=== PATIENT | female | born 1990 | race American Indian/Alaskan Native ===

== ENCOUNTER 2017-07-10 10:11 | Emergency (ER) | payer MEDICAID ==
--- NOTE | 2017-07-10 10:55 | Emergency Department Report ---
Minor Respiratory - HPI Chief Complaint: Upper Respiratory Infection Stated Complaint: FLU LIKE SYMPTOMS Time Seen by Provider: 07/10/17 10:54 Duration: 1 Day Pain Location: Other (bodyache 02/23) Severity: severe Minor Respiratory: Yes Rhinorrhea (congestion), Yes Able to Tolerate Fluids, Yes Cough, Yes Fever (she says she took Tylenol), No Sore Throat, No Ear Pain, No Sick Contacts (patient concern for infection due to organ transplant status) , No Hemoptysis, No Chest Pain, No Shortness of Breath Other History: Patient reports that she's been having congestion cough and body ache, fever and chills times one day. Denies being around anyone with similar symptoms. Patient has a history of asthma and kidney, pancreas transplant 2 years ago and also she is type I diabetic and also on hemodialysis. Denies any nausea or vomiting. Denies any shortness of breath or chest pain. Denies any abdominal or back pain. [id number] medication did not help. ED Review of Systems ROS: Stated complaint: FLU LIKE SYMPTOMS Other details as noted in HPI Comment: All other systems reviewed and negative Constitutional: chills, fever Eyes: denies: eye pain, eye discharge ENT: denies: ear pain, throat pain, congestion Respiratory: cough. denies: orthopnea, shortness of breath, SOB with exertion, SOB at rest, stridor, wheezing Cardiovascular: denies: chest pain, palpitations, dyspnea on exertion, edema, syncope, paroxysmal nocturnal dyspnea Gastrointestinal: denies: abdominal pain, nausea, vomiting, diarrhea, constipation, hematemesis, melena Musculoskeletal: myalgia. denies: back pain, joint swelling, arthralgia Skin: denies: rash Neurological: denies: headache, numbness, paresthesias, confusion, abnormal gait , vertigo ED Past Medical Hx - Past Medical History Previous Medical History?: Yes Hx Hypertension: Yes (3-4 YRS, ) Hx Diabetes: Yes (1996 IDDM SINCE 6YRS OLD) Hx GERD: Yes Hx Renal Disease: (HEMODIALYSIS - Wed) Hx Headaches / Migraines: Yes (MIGRAINES IN THE PAST) Hx Asthma: Yes (2011) Additional medical history: dialysis Tu//wed - Surgical History Past Surgical History?: Yes Hx Cholecystectomy: Yes Additional Surgical History: shunt left upper arm. KIDNEY AND PANCREAS transplant 06/2015. Port to right chest - Family History Family history: hypertension - Social History Smoking Status: Never Smoker Substance Use Type: None - Medications Home Medications: Home Medications Medication Instructions Recorded Confirmed Last Taken Type Sevelamer Carbonate [Renvela] 2 tab PO TIDWM 01/20/13 08/02/15 05/02/15 History 2 tab prednisoLONE ACETATE 1%(NF) [Pred 1 drops OD TID 03/29/13 08/02/15 05/03/15 History Forte 1%(Nf)] 1 drop NIFEdipine [Nifedipine ER] 30 mg PO BID 09/29/13 08/02/15 05/03/15 History 30mg oxyCODONE /ACETAMINOPHEN [Percocet 1 tab PO BID PRN #10 tablet 04/19/1505/02/15 Rx 5/325] 1 tab Fluticasone/Salmeterol [Advair 2 puff INHALATION BID 05/03/15 08/02/15 05/03/15 History Diskus 250-50 mcg] 2 puffs K-Phos Neutral 2 tab PO TID 08/02/15 08/02/15 Unknown History Metoclopramide [Reglan] 10 mg PO ACHS 08/02/15 08/02/15 Unknown History Metoprolol [Lopressor TAB] 50 mg PO BID 08/02/15 08/02/15 Unknown History Mycophenolate [Cellcept] 1,000 mg PO BID 08/02/15 08/02/15 Unknown History Ondansetron [Zofran TAB] 20 mg PO AC 08/02/15 08/02/15 Unknown History Promethazine [Phenergan TAB] 25 mg PO Q6HR PRN 08/02/15 08/02/15 Unknown History Sulfamethoxazole/Trimethoprim 1 each PO DAILY 08/02/15 08/02/15 Unknown History [Bactrim DS TAB] Tacrolimus [Prograf] 4 mg PO BID 08/02/15 08/02/15 Unknown History valGANciclovir (NF) [Valcyte] 450 mg PO DAILY 08/02/15 08/02/15 Unknown History HYDROcodone/APAP 5-325 [[place] 1 - 2 each PO Q6HR PRN #14 tablet 03/21/16 Unknown Rx 5/325] ALBUTEROL Inhaler [ProAir HFA 2 puff IH QID PRN #1 inhalation 04/07/16 Unknown Rx Inhaler] predniSONE [Deltasone] 5 mg PO QDAY #5 tablet 04/07/16 Unknown Rx predniSONE [Deltasone] 50 mg PO QDAY #10 tab 04/28/16 Unknown Rx traMADol [Ultram] 50 mg PO Q6HR PRN #20 tablet 05/10/16 Unknown Rx Amoxicillin/K Clav Tab [Augmentin 1 tab PO Q12HR 10 Days #20 tab 07/10/17 Unknown Rx 875 mg] Cetirizine HCl [ZyrTEC] 10 mg PO QAM 14 Days #14 capsule 07/10/17 Unknown Rx Fluticasone [Flonase] 1 spray NS QDAY 14 Days #1 bottle 07/10/17 Unknown Rx guaiFENesin/CODEINE [Robitussin AC] 5 ml PO Q8H PRN #75 oral.liqd 07/10/17 Unknown Rx Minor Respiratory Exam - Exam General: Vital signs noted. No distress. Alert and acting appropriately. 27-year-old female well-nourished well-developed in no acute distress HEENT: Yes Moist Mucous Membranes, Yes Rhinorrhea (nasal congestion), No Pharyngeal Erythema, No Pharyngeal Exudates, No Conjuctival Injection, No Frontal Tenderness, No Maxillary Tenderness Ear: Neither TM Bulge (bilateral TM congested), Neither TM Erythema, Neither EAC Pain, Neither EAC Discharge Neck: Yes Supple (full range of motion,), No Adenopathy Lungs: Yes Good Air Exchange, Yes Cough (dry cough), No Wheezes, No Ronchi, No Stridor, No Labored Respirations, No Retractions Heart: Yes Regular (regular rate and rhythm.), No Murmur Abdomen: Yes Normal Bowel Sounds, No Tenderness (soft, nontender to palpation in all quadrants. No guarding or rebound tenderness.), No Peritoneal Signs Skin: No Rash, No Edema Neurologic: Alert and oriented, no deficits. Alert and oriented 3, GCS of 15. Speech is clear and fluid. Normal gait. Negative Romberg and no pronator drift Musculoskeletal: Unremarkable. Extremity: NO Clubbing, cyanosis or edema. +2 pulses to all extremities and no neurovascular compromise ED Course Vital Signs 07/10/17 07/10/17 10:29 10:38 Temperature 98.8 F 98.8 F Pulse Rate 93 H 93 H Respiratory 18 18 Rate Blood Pressure 125/67 Blood Pressure 125/67 [Right] O2 Sat by Pulse 98 99 Oximetry - Reevaluation(s) Reevaluation #1: 07/10/17 12:06 Patient stable throughout ED stay. I waited and influenza tests. Chest x-ray pending. Patient given Xopenex 1.25 mg and Atrovent 0.5 mg nebulizer and reports feeling better. Reevaluation #2: 07/10/17 12:55 stable and feel better. Influenza A and B- and chest x-ray without any acute findings 07/10/17 12:55 ED Medical Decision Making - Lab Data Influenza A and B negative - Radiology Data Radiology results: report reviewed Chest Xray negative - Medical Decision Making Patient here reports that she is having flulike symptoms and patient and had pancreas and kidney transplant in 2003. She's also on hemodialysis 3 times a week. Denies being exposed to the flu but that she is worried because she's been having flulike symptoms. Patient found to have upper respiratory infection with cough and congestion. She received Atrovent 0.5 mg and Xopenex 1.25 mg nebulizer for cough. Lung sounds are clear. X-ray report shows no acute cardiopulmonary findings and influenza A and B is negative. Patient is immunocompromised and with asthma therefore I'll place her on antibiotic to prevent any infection. I discussed diagnosis and treatment plan the patient and inform her she will need to follow-up with her primary care physician on Wednesday for follow-up visit and if her condition worsen to return to the emergency room. Patient discharged home in stable condition with prescription for penicillin with codeine, Augmentin, Zyrtec and Flonase. Critical care attestation.: If time is entered above; I have spent that time in minutes in the direct care of this critically ill patient, excluding procedure time. ED Disposition Clinical Impression: Upper respiratory infection with cough and congestion, Body aches Disposition: -01 TO HOME OR SELFCARE Is pt being admited?: No Does the pt Need Aspirin: No Condition: Stable Instructions: Upper Respiratory Infection (ED), Acute Cough (ED), Musculoskeletal Pain (ED) Additional Instructions: Follow-up with primary care physician in 07/12/2017 and if your condition worsens prior to my of the please return to the emergency room. 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
[2017-07-10] MEDS ORDERED: ATROVENT IH ONE (10:58)
[2017-07-10] MEDS ORDERED: XOPENEX IH ONE (10:58)
--- NOTE | 2017-07-10 12:10 | XRay Report ---
ROUTINE CHEST, TWO VIEWS: HISTORY: Cough, chills, transplant patient. The trachea, heart, mediastinal contour, lung fall and bony thorax are unremarkable. IMPRESSION: Unremarkable chest x-ray.
[2017-07-10 13:17] VITALS: BP 122/62
== END 2017-07-10 13:17 | disposition home or self-care (01) ==
LOC: ED 10:11
DX: J06.9 Acute upper respiratory infection, unspecified (principal); E11.22 Type 2 diabetes mellitus with diabetic chronic kidney disease; I12.0 Hypertensive chronic kidney disease with stage 5 chronic kidney disease or end stage renal disease; N18.6 End stage renal disease; Z99.2 Dependence on renal dialysis; M79.1 Myalgia; R05 Cough; R50.9 Fever, unspecified; K21.9 Gastro-esophageal reflux disease without esophagitis
CPT/HCPCS: 71046; 87400; 94640

== ENCOUNTER 2017-12-11 11:22 | Emergency (ER) | payer MEDICAID ==
[2017-12-11 11:34] VITALS: BP 129/66
--- NOTE | 2017-12-11 12:24 | Emergency Department Report ---
ED Extremity Problem HPI - General Chief complaint: Extremity Injury, Lower Stated complaint: RT FOOT/LEG PAIN Time Seen by Provider: 12/11/17 12:05 Source: patient Mode of arrival: Ambulatory Limitations: No Limitations - History of Present Illness Initial comments: Patient is a 27-year-old female who presented with several months of right foot and ankle pain. Patient states a year ago she broke her foot and then afterwards sprained her ankle has been having pain off and on since. Sometimes patient states that she hasn't pain in the right ankle issues up the leg. [place] And patient was complaining of pain and was sent to the emergency department for evaluation today. Patient has had no new trauma there is no complex of any swelling is just some aching pain as a 5 out of 10 in severity at this time. - Related Data Home Medications Medication Instructions Recorded Confirmed Last Taken Sevelamer Carbonate [Renvela] 2 tab PO TIDWM 01/20/13 08/02/15 05/02/15 2 tab prednisoLONE ACETATE 1%(NF) [Pred 1 drops OD TID 03/29/13 08/02/15 05/03/15 Forte 1%(Nf)] 1 drop NIFEdipine [Nifedipine ER] 30 mg PO BID 09/29/13 08/02/15 05/03/15 30mg Fluticasone/Salmeterol [Advair 2 puff INHALATION BID 05/03/15 08/02/15 05/03/15 Diskus 250-50 mcg] 2 puffs K-Phos Neutral 2 tab PO TID 08/02/15 08/02/15 Unknown Metoclopramide [Reglan] 10 mg PO ACHS 08/02/15 08/02/15 Unknown Metoprolol [Lopressor TAB] 50 mg PO BID 08/02/15 08/02/15 Unknown Mycophenolate [Cellcept] 1,000 mg PO BID 08/02/15 08/02/15 Unknown Ondansetron [Zofran TAB] 20 mg PO AC 08/02/15 08/02/15 Unknown Promethazine [Phenergan TAB] 25 mg PO Q6HR PRN 08/02/15 08/02/15 Unknown Sulfamethoxazole/Trimethoprim 1 each PO DAILY 08/02/15 08/02/15 Unknown [Bactrim DS TAB] Tacrolimus [Prograf] 4 mg PO BID 08/02/15 08/02/15 Unknown valGANciclovir (NF) [Valcyte] 450 mg PO DAILY 08/02/15 08/02/15 Unknown Previous Rx's Medication Instructions Recorded Last Taken Type oxyCODONE /ACETAMINOPHEN [Percocet 1 tab PO BID PRN #10 tablet 04/19/15 Rx 5/325] 1 tab HYDROcodone/APAP 5-325 [[place] 1 - 2 each PO Q6HR PRN #14 tablet 03/21/16 Unknown Rx 5/325] ALBUTEROL Inhaler [ProAir HFA 2 puff IH QID PRN #1 inhalation 04/07/16 Unknown Rx Inhaler] predniSONE [Deltasone] 5 mg PO QDAY #5 tablet 04/07/16 Unknown Rx predniSONE [Deltasone] 50 mg PO QDAY #10 tab 04/28/16 Unknown Rx traMADol [Ultram] 50 mg PO Q6HR PRN #20 tablet 05/10/16 Unknown Rx Amoxicillin/K Clav Tab [Augmentin 1 tab PO Q12HR 10 Days #20 tab 07/10/17 Unknown Rx 875 mg] Cetirizine HCl [ZyrTEC] 10 mg PO QAM 14 Days #14 capsule 07/10/17 Unknown Rx Fluticasone [Flonase] 1 spray NS QDAY 14 Days #1 bottle 07/10/17 Unknown Rx guaiFENesin/CODEINE [Robitussin AC] 5 ml PO Q8H PRN #75 oral.liqd 07/10/17 Unknown Rx Ibuprofen [Motrin] 600 mg PO Q8H PRN #20 tablet 12/11/17 Unknown Rx Allergies Allergy/AdvReac Type Severity Reaction Status Date / Time adhesive AdvReac Mild PLASTIC Verified 12/11/17 11:31 TAPE CAUSES RASH, SILK TAPE TEARS SKIN ED Review of Systems ROS: Stated complaint: RT FOOT/LEG PAIN Other details as noted in HPI Comment: All other systems reviewed and negative ED Past Medical Hx - Past Medical History Hx Hypertension: Yes (3-4 YRS, ) Hx Diabetes: Yes (1996 IDDM SINCE 6YRS OLD) Hx GERD: Yes Hx Renal Disease: (HEMODIALYSIS Wed) Hx Headaches / Migraines: Yes (MIGRAINES IN THE PAST) Hx Asthma: Yes (2011) Additional medical history: dialysis Tues/thurs/sat - Surgical History Hx Cholecystectomy: Yes Additional Surgical History: shunt left upper arm. KIDNEY AND PANCREAS transplant 06/2015. Port to right chest - Social History Smoking Status: Never Smoker Substance Use Type: None - Medications Home Medications: Home Medications Medication Instructions Recorded Confirmed Last Taken Type Sevelamer Carbonate [Renvela] 2 tab PO TIDWM 01/20/13 08/02/15 05/02/15 History 2 tab prednisoLONE ACETATE 1%(NF) [Pred 1 drops OD TID 03/29/13 08/02/15 05/03/15 History Forte 1%(Nf)] 1 drop NIFEdipine [Nifedipine ER] 30 mg PO BID 09/29/13 08/02/15 05/03/15 History 30mg oxyCODONE /ACETAMINOPHEN [Percocet 1 tab PO BID PRN #10 tablet 04/19/1505/02/15 Rx 5/325] 1 tab Fluticasone/Salmeterol [Advair 2 puff INHALATION BID 05/03/15 08/02/15 05/03/15 History Diskus 250-50 mcg] 2 puffs K-Phos Neutral 2 tab PO TID 08/02/15 08/02/15 Unknown History Metoclopramide [Reglan] 10 mg PO ACHS 08/02/15 08/02/15 Unknown History Metoprolol [Lopressor TAB] 50 mg PO BID 08/02/15 08/02/15 Unknown History Mycophenolate [Cellcept] 1,000 mg PO BID 08/02/15 08/02/15 Unknown History Ondansetron [Zofran TAB] 20 mg PO AC 08/02/15 08/02/15 Unknown History Promethazine [Phenergan TAB] 25 mg PO Q6HR PRN 08/02/15 08/02/15 Unknown History Sulfamethoxazole/Trimethoprim 1 each PO DAILY 08/02/15 08/02/15 Unknown History [Bactrim DS TAB] Tacrolimus [Prograf] 4 mg PO BID 08/02/15 08/02/15 Unknown History valGANciclovir (NF) [Valcyte] 450 mg PO DAILY 08/02/15 08/02/15 Unknown History HYDROcodone/APAP 5-325 [[place] 1 - 2 each PO Q6HR PRN #14 tablet 03/21/16 Unknown Rx 5/325] ALBUTEROL Inhaler [ProAir HFA 2 puff IH QID PRN #1 inhalation 04/07/16 Unknown Rx Inhaler] predniSONE [Deltasone] 5 mg PO QDAY #5 tablet 04/07/16 Unknown Rx predniSONE [Deltasone] 50 mg PO QDAY #10 tab 04/28/16 Unknown Rx traMADol [Ultram] 50 mg PO Q6HR PRN #20 tablet 05/10/16 Unknown Rx Amoxicillin/K Clav Tab [Augmentin 1 tab PO Q12HR 10 Days #20 tab 07/10/17 Unknown Rx 875 mg] Cetirizine HCl [ZyrTEC] 10 mg PO QAM 14 Days #14 capsule 07/10/17 Unknown Rx Fluticasone [Flonase] 1 spray NS QDAY 14 Days #1 bottle 07/10/17 Unknown Rx guaiFENesin/CODEINE [Robitussin AC] 5 ml PO Q8H PRN #75 oral.liqd 07/10/17 Unknown Rx Ibuprofen [Motrin] 600 mg PO Q8H PRN #20 tablet 12/11/17 Unknown Rx ED Physical Exam - General Limitations: No Limitations General appearance: alert, in no apparent distress - Head Head exam: Present: atraumatic, normocephalic - Eye Eye exam: Present: normal appearance - ENT ENT exam: Present: mucous membranes moist - Neck Neck exam: Present: normal inspection - Respiratory Respiratory exam: Present: normal lung sounds bilaterally. Absent: respiratory distress, wheezes, rales, rhonchi - Cardiovascular Cardiovascular Exam: Present: regular rate, normal rhythm. Absent: systolic murmur, diastolic murmur, rubs, gallop - GI/Abdominal GI/Abdominal exam: Present: soft, normal bowel sounds. Absent: distended, tenderness, guarding - Extremities Exam Extremities exam: Present: normal inspection, full ROM, normal capillary refill. Absent: tenderness, pedal edema, joint swelling, calf tenderness - Back Exam Back exam: Present: normal inspection - Neurological Exam Neurological exam: Present: alert, oriented X3 - Psychiatric Psychiatric exam: Present: normal affect, normal mood - Skin Skin exam: Present: warm, dry, intact, normal color. Absent: rash ED Course Vital Signs 07/28/18 11:31 Temperature 98.7 F Pulse Rate 87 Respiratory 16 Rate Blood Pressure 129/66 O2 Sat by Pulse 97 Oximetry Critical care attestation.: If time is entered above; I have spent that time in minutes in the direct care of this critically ill patient, excluding procedure time. ED Disposition Clinical Impression: Musculoskeletal leg pain Disposition: DC- TO HOME OR SELFCARE Is pt being admited?: No Does the pt Need Aspirin: No Condition: Stable Additional Instructions: Please follow-up with your orthopedic doctor. Prescriptions: Ibuprofen [Motrin] 600 mg PO Q8H PRN #20 tablet PRN Reason: Pain Referrals: PRIMARY CARE, [Primary Care Provider] - 3-5 Days
== END 2017-12-11 12:20 | disposition home or self-care (01) ==
LOC: ED 11:22
DX: M25.571 Pain in right ankle and joints of right foot (principal); I12.0 Hypertensive chronic kidney disease with stage 5 chronic kidney disease or end stage renal disease; E11.22 Type 2 diabetes mellitus with diabetic chronic kidney disease; N18.6 End stage renal disease; K21.9 Gastro-esophageal reflux disease without esophagitis; G43.909 Migraine, unspecified, not intractable, without status migrainosus; J45.909 Unspecified asthma, uncomplicated; Z91.048 Other nonmedicinal substance allergy status; Z99.2 Dependence on renal dialysis
CPT/HCPCS: 99282